=== PATIENT | male | born 1975 | race Caucasian/White ===

== ENCOUNTER 2018-08-12 16:07 | Inpatient (IN) | payer SELFPAY ==
[2018-08-12] MEDS ORDERED: Sodium Chloride 0.9% 1,000 ML IV STA (18:01)
[2018-08-12] MEDS ORDERED: Lidocaine 136 MG in Sodium Chloride 0.9% 100 ML IV STA (18:01)
[2018-08-12 18:17] LABS: BASO # 0.1 K/uL (0.0-0.2); BASO % 0.3 % (0.0-2.0); HEMOGLOBIN 15.6 g/dL (12.0-18.0); LYMPH # 1.1 K/uL (1.0-4.3); LYMPH % 6.2 % (20.0-40.0); MEAN CELL VOLUME 83.2 fL (80.0-94.0); MEAN CORPUSCULAR HEMOGLOBIN 27.4 pg (27.0-31.0); MEAN CORPUSCULAR HGB CONC 32.9 g/dL (33.0-37.0); MEAN PLATELET VOLUME 9.5 fL (7.2-11.7); MONO # 0.9 K/uL (0.0-0.8); MONO % 5.1 % (0.0-10.0); NEUT # 15.8 K/uL (1.8-7.0); NEUT % 88.4 % (50.0-75.0); PLATELET COUNT 284 K/uL (130-400); RBC 5.71 Mil/uL (4.40-5.90); RED CELL DISTRIBUTION WIDTH 14.3 % (11.5-14.5); WHITE BLOOD COUNT 17.8 K/uL (4.8-10.8)
[2018-08-12] MEDS ORDERED: Sodium Chloride 0.9% 1,000 ML ONE ×2 (18:17→20:27)
[2018-08-12 18:25] LABS: SQUAMOUS EPITHIAL 1 /hpf (0-5); URINE BACTERIA RARE (<OCC); URINE BILIRUBIN NEGATIVE (NEGATIVE); URINE BLOOD 1+ (NEGATIVE); URINE CLARITY Hazy (Clear); URINE COLOR Yellow (YELLOW); URINE GLUCOSE (UA) 3+ mg/dL (Normal); URINE LEUKOCYTE ESTERASE NEG Leu/uL (Negative); URINE PROTEIN NEGATIVE (NEGATIVE); URINE UROBILINOGEN NORMAL mg/dL (0.2-1.0)
[2018-08-12 18:31] LABS: ALB/GLOB RATIO 1.5 (1.0-2.1); ALT/SGPT 27 U/L (21-72); AST/SGOT 30 U/L (17-59); BLOOD UREA NITROGEN 22 mg/dL (9-20); GFR NON-AFRICAN AMERICAN > 60; LIPASE 164 U/L (23-300)
--- NOTE | 2018-08-12 18:40 | C.PDOC ---
History Of Present Illness 43 year old male presents to the emergency department with complaints of left flank pain since waking up this morning. Patient reports that he tried to eat breakfast this morning but vomited. Patient states that the pain is 8/10 in s everity. he denies diarrhea, nausea, chest pain, fever, and chills. <Amina Pompa - Last Filed: 08/12/18 19:09> History Per: Patient History/Exam Limitations: no limitations Onset/Duration Of Symptoms: Hrs Current Symptoms Are (Timing): Still Present Pain Scale Rating Of: 8 Location Of Pain/Discomfort: Other (left flank) Quality Of Discomfort: "Pain" Associated Symptoms: Vomiting. denies: Fever, Chills, Nausea, Diarrhea, Chest Pain <Amina Pompa - Last Filed: 08/12/18 19:09> <Pranav Chavez - Last Filed: 08/12/18 19:42> Time Seen by Provider: 08/12/18 16:54 Chief Complaint (Nursing): Abdominal Pain Past Medical History Reviewed: Historical Data, Nursing Documentation, Vital Signs Vital Signs: Last Vital Signs Temp 98.2 F 08/12/18 16:16 Pulse 114 H 08/12/18 16:16 Resp 20 08/12/18 16:16 BP 174/88 H 08/12/18 16:16 Pulse Ox 95 08/12/18 16:16 - Medical History PMH: HTN, Hypercholesterolemia Surgical History: No Surg Hx Family History: States: Unknown Family Hx - Social History Hx Alcohol Use: No Hx Substance Use: No - Immunization History Hx Tetanus Toxoid Vaccination: No Hx Influenza Vaccination: No Hx Pneumococcal Vaccination: No <Amina Pompa - Last Filed: 08/12/18 19:09> Vital Signs: Last Vital Signs Temp 98.2 F 08/12/18 16:16 Pulse 113 H 08/12/18 18:56 Resp 19 08/12/18 18:56 BP 164/103 H 08/12/18 18:56 Pulse Ox 95 08/12/18 19:10 <Pranav Chavez - Last Filed: 08/12/18 19:42> Review Of Systems Except As Marked, All Systems Reviewed And Found Negative. Constitutional: Negative for: Fever, Chills Cardiovascular: Negative for: Chest Pain Gastrointestinal: Positive for: Vomiting, Abdominal Pain. Negative for: Nausea, Diarrhea <Amina Pompa - Last Filed: 08/12/18 19:09> Physical Exam - Physical Exam Appears: Non-toxic, In Acute Distress (uncomfortable) Skin: Normal Color, Warm, Dry Head: Atraumatic, Normacephalic Eye(s): bilateral: Normal Inspection, PERRL, EOMI Nose: Normal Oral Mucosa: Moist Neck: Normal, Supple Chest: Symmetrical, No Tenderness Cardiovascular: Rhythm Regular, No Murmur Respiratory: Normal Breath Sounds, No Rales, No Rhonchi, No Wheezing Gastrointestinal/Abdominal: Soft, No Tenderness, No Guarding, No Rebound Extremity: Normal ROM Neurological/Psych: Oriented x3, Normal Speech, Normal Cognition <Amina Pompa - Last Filed: 08/12/18 19:09> ED Course And Treatment - Laboratory Results Result Diagrams: 08/12/18 18:07 08/12/18 18:07 Lab Results: Total Bilirubin 0.6 mg/dL (0.2-1.3) 08/12/18 18:07 AST 30 U/L (17-59) 08/12/18 18:07 ALT 27 U/L (21-72) 08/12/18 18:07 Alkaline Phosphatase 106 U/L (38-126) 08/12/18 18:07 Total Protein 8.2 g/dL (6.3-8.3) 08/12/18 18:07 Albumin 5.0 g/dL (3.5-5.0) 08/12/18 18:07 Globulin 3.2 gm/dL (2.2-3.9) 08/12/18 18:07 Albumin/Globulin Ratio 1.5 (1.0-2.1) 08/12/18 18:07 Lipase 164 U/L (23-300) 08/12/18 18:07 O2 Sat by Pulse Oximetry: 95 <mAina Pompa - Last Filed: 08/12/18 19:09> - Laboratory Results Result Diagrams: 08/12/18 18:07 08/12/18 18:07 Lab Results: Troponin I < 0.0120 ng/mL (0.00-0.120) 08/12/18 18:07 Total Bilirubin 0.6 mg/dL (0.2-1.3) 08/12/18 18:07 AST 30 U/L (17-59) 08/12/18 18:07 ALT 27 U/L (21-72) 08/12/18 18:07 Alkaline Phosphatase 106 U/L (38-126) 08/12/18 18:07 Total Protein 8.2 g/dL (6.3-8.3) 08/12/18 18:07 Albumin 5.0 g/dL (3.5-5.0) 08/12/18 18:07 Globulin 3.2 gm/dL (2.2-3.9) 08/12/18 18:07 Albumin/Globulin Ratio 1.5 (1.0-2.1) 08/12/18 18:07 Lipase 164 U/L (23-300) 08/12/18 18:07 Urine Color Yellow (YELLOW) 08/12/18 18:07 Urine Clarity Hazy (Clear) 08/12/18 18:07 Urine pH 5.0 (5.0-8.0) 08/12/18 18:07 Ur Specific [place] 1.021 (1.003-1.030) 08/12/18 18:07 Urine Protein Negative mg/dL (NEGATIVE) 08/12/18 18:07 Urine Glucose (UA) 3+ mg/dL (Normal) H 08/12/18 18:07 Urine Ketones Trace mg/dL (NEGATIVE) 08/12/18 18:07 Urine Blood 1+ (NEGATIVE) H 08/12/18 18:07 Urine Nitrate Negative (NEGATIVE) 08/12/18 18:07 Urine Bilirubin Negative (NEGATIVE) 08/12/18 18:07 Urine Urobilinogen Normal mg/dL (0.2-1.0) 08/12/18 18:07 Ur Leukocyte Esterase Neg Monisha/uL (Negative) 08/12/18 18:07 Urine WBC (Auto) < 1 /hpf (0-5) 08/12/18 18:07 Urine RBC (Auto) 1 /hpf (0-3) 08/12/18 18:07 Ur Squamous Epith Cells 1 /hpf (0-5) 08/12/18 18:07 Urine Bacteria Rare (<OCC) 08/12/18 18:07 <Pranav Chavez - Last Filed: 08/12/18 19:42> Medical Decision Making Medical Decision Making: Plan: CT Abdomen and Pelvis EKG Chemistry CBC Lidocaine 136mg IV NaCl IV Fluids Zofran 4mg IVP Urinalysis <Amina Pompa - Last Filed: 08/12/18 19:09> Disposition - Disposition Disposition Time: 19:10 <Amina Pompa - Last Filed: 08/12/18 19:09> Discussed With : Shreyas Brewer Doctor Will See Patient In The: Hospital Counseled Patient/Family Regarding: Diagnosis - Disposition Disposition Time: 19:40 - POA Present On Arrival: None <Pranav Chavez - Last Filed: 08/12/18 19:42> - Disposition Disposition: HOSPITALIZED Condition: STABLE Forms: [employer]aph[employer] ([place]) - Clinical Impression Clinical Impression: Flank pain, Diabetes mellitus, Hydronephrosis, left, Pyelonephritis, Hydroureter, left - PA / OFFICE LEAD / Resident Statement MD/DO has reviewed & agrees with the documentation as recorded. - Scribe Statement The provider has reviewed the documentation as recorded by the Scribe (Jayro Giron) All medical record entries made by the Scribe were at my direction and personally dictated by me. I have reviewed the chart and agree that the record accurately reflects my personal performance of the history, physical exam, medical decision making, and the department course for this patient. I have also personally directed, reviewed, and agree with the discharge instructions and disposition. <Amina Pompa - Last Filed: 08/12/18 19:09> Physician Patient Turnover Patient Signed Over To: Pranav Chavez Handoff Comments: CT abdomen/pelvis, EKG pending <Amina Pompa - Last Filed: 08/12/18 19:09>
[2018-08-12] MEDS ORDERED: Sodium Chloride 0.9% 1,000 ML IV ONE (19:16)
[2018-08-12] MEDS ORDERED: (Novolin R) Insulin Human Regular 100 units/ml vial SC ONE (19:17)
[2018-08-12] MEDS ORDERED: Ciprofloxacin 400mg/200ml D5W 400 MG/200 ML BAG IVPB STA (19:24)
[2018-08-12] MEDS ORDERED: (Novolin R) Insulin Human Regular 100 units/ml vial ONE (20:27)
[2018-08-12] MEDS ORDERED: Ciprofloxacin 400mg/200ml D5W 400 MG/200 ML BAG IVPB ONE (20:27)
[2018-08-12 20:57] LABS: LYMPHOCYTE 8 % (20-40); MONOCYTE 3 % (0-10); NEUTROPHIL 89 % (50-75); PLATELET ESTIMATE NORMAL (NORMAL); TOTAL CELLS COUNTED 100
[2018-08-13] MEDS: Sodium Chloride 0.45% 1,000 ML IV SCH ×3 (00:46→17:15)
--- NOTE | 2018-08-13 00:48 | CP.PCM.HP ---
<TaiwomaryJorge - Last Filed: 08/13/18 00:58> History of Present Illness - History of Present Illness History of Present Illness: PGY-1 History and Physical for Dr. Brewer Patient is a 43 year old male with PMHx HTN, HLD, DM who presents with new-onse, persistent L-sided abdominal pain that began 5 pm yesterday. Patient denies n/c/d/c. Patient denies dysuria, pyuria, or hematuria, but does states some occasional "itching" with urination. Patient denies any fevers or chills. Pt does state pain has improved slightly as of today, but still persists. Patient is diabetic and notes that his sugars tend to run high, in the 200s, does state he has a poor diet and "eats a lot". PMHx: HTN, HLD, DM Allergeries: NKA Surgical hx: Denies Family hx: No known Social hx: Nonsmoker, denies drug or alcohol use. Works in [employer]. Meds: Norvasc 5 mg PO daily, Glimeperide 2mg PO BID, Atorvastatin 40 mg PO HS Present on Admission - Present on Admission Any Indicators Present on Admission: No Review of Systems - Constitutional Constitutional: absent: Chills, Fatigue, Fever - EENT Eyes: absent: Blurred Vision, Photophobia Nose/Mouth/Throat: absent: Nasal Congestion, Nasal Discharge - Cardiovascular Cardiovascular: absent: Chest Pain, Dyspnea - Respiratory Respiratory: absent: Cough, Dyspnea - Gastrointestinal Gastrointestinal: Abdominal Pain (Left-sided abd pain). absent: Constipation, Diarrhea, Nausea, Vomiting - Genitourinary Genitourinary: absent: Dysuria, Pyuria, Urinary Frequency, Urinary Hesitance - Musculoskeletal Musculoskeletal: absent: Numbness, Tingling - Neurological Neurological: absent: Numbness, Focal Weakness - Endocrine Endocrine: Polydipsia, Polyuria. absent: Fatigue Past Patient History - Infectious Disease Hx of Infectious Diseases: None - Past Social History Smoking Status: Never Smoked - CARDIAC Hx Hypercholesterolemia: Yes Hx Hypertension: Yes - ENDOCRINE/METABOLIC Hx Endocrine Disorders: Yes Hx Diabetes Mellitus Type 2: Yes - PSYCHIATRIC Hx Substance Use: No - SURGICAL HISTORY Hx Surgeries: No - ANESTHESIA Hx Anesthesia: No Meds Allergies/Adverse Reactions: Allergies Allergy/AdvReac Type Severity Reaction Status Date / Time No Known Allergies Allergy Verified 07/06/16 18:47 Physical Exam - Constitutional Appears: Non-toxic, No Acute Distress - Head Exam Head Exam: ATRAUMATIC, NORMOCEPHALIC - Eye Exam Eye Exam: EOMI, Normal appearance - ENT Exam ENT Exam: Mucous Membranes Moist - Respiratory Exam Respiratory Exam: Clear to Auscultation Bilateral, NORMAL BREATHING PATTERN. absent: Rhonchi, Wheezes - Cardiovascular Exam Cardiovascular Exam: REGULAR RHYTHM, +S1, +S2 - GI/Abdominal Exam GI & Abdominal Exam: Normal Bowel Sounds, Soft. absent: Tenderness - Extremities Exam Extremities exam: Positive for: normal inspection. Negative for: pedal edema, tenderness - Neurological Exam Neurological exam: Alert, CN II-XII Intact, Oriented x3 - Psychiatric Exam Psychiatric exam: Normal Affect, Normal Mood - Skin Skin Exam: Dry, Intact Results - Vital Signs Recent Vital Signs: Last Vital Signs Temp 99.6 F 08/13/18 00:39 Pulse 116 H 08/13/18 00:39 Resp 16 08/13/18 00:39 BP 123/84 08/13/18 00:39 Pulse Ox 97 08/13/18 00:39 - Labs Result Diagrams: 08/12/18 18:07 08/12/18 18:07 Labs: Laboratory Results - last 24 hr 08/12/18 08/12/18 08/12/18 18:07 18:07 18:07 WBC 17.8 H D RBC 5.71 Hgb 15.6 Hct 47.5 MCV 83.2 MCH 27.4 MCHC 32.9 L RDW 14.3 Plt Count 284 MPV 9.5 Neut % (Auto) 88.4 H Lymph % (Auto) 6.2 L [place] % (Auto) 5.1 Eos % (Auto) 0.0 Baso % (Auto) 0.3 Neut # (Auto) 15.8 H Lymph # (Auto) 1.1 [place] # (Auto) 0.9 H Eos # (Auto) 0.0 Baso # (Auto) 0.1 Neutrophils % (Manual) 89 H Lymphocytes % (Manual) 8 L Monocytes % (Manual) 3 Platelet Estimate Normal Sodium 135 Potassium 3.7 Chloride 98 Carbon Dioxide 22 Anion Gap 18 BUN 22 H Creatinine 1.0 Est GFR ( Amer) > 60 Est GFR (Non-Af Amer) > 60 Random Glucose 286 H D Calcium 10.0 Total Bilirubin 0.6 AST 30 ALT 27 Alkaline Phosphatase 106 Troponin I < 0.0120 Total Protein 8.2 Albumin 5.0 Globulin 3.2 Albumin/Globulin Ratio 1.5 Lipase 164 Urine Color Yellow Urine Clarity Hazy Urine pH 5.0 Ur Specific [place] 1.021 Urine Protein Negative Urine Glucose (UA) 3+ H Urine Ketones Trace Urine Blood 1+ H Urine Nitrate Negative Urine Bilirubin Negative Urine Urobilinogen Normal Ur Leukocyte Esterase Neg Urine WBC (Auto) < 1 Urine RBC (Auto) 1 Ur Squamous Epith Cells 1 Urine Bacteria Rare Assessment & Plan - Assessment and Plan (Free Text) Assessment: Abdominal pain 07/21 Nephrolithiasis -CT abd/pelvis 08/14- apparent calculus at vesiculoureteral junction (d/w Dr. Brewer, official read pending) - f/u official read -.45 NS @ 150 cc/hr -Rocephin 1 gm IV daily -Procalcitonin - f/u -Strain urine for calculi -Urology consulted - f/u recs -F/u repeat abd US -NPO after midnight in case of surgical intervention DM, uncontrolled -A1C - f/u -DM meds held while NPO HTN -Home Norvasc 5mg PO daily Hypercholesterolemia -Crestor 20 mg PO HS PPx: DVt - Heparin 5000 U SC Q8 Assessment and plan d/w Dr. Osman Hood, PGY-1 <Shreyas Brewer P - Last Filed: 08/13/18 07:26> Results - Vital Signs Recent Vital Signs: Last Vital Signs Temp 98.2 F 08/13/18 02:00 Pulse 112 H 08/13/18 02:00 Resp 20 08/13/18 02:00 BP 157/97 H 08/13/18 02:00 Pulse Ox 95 08/13/18 02:00 - Labs Result Diagrams: 08/12/18 18:07 08/12/18 18:07 Labs: Laboratory Results - last 24 hr 08/12/18 08/12/18 08/12/18 18:07 18:07 18:07 WBC 17.8 H D RBC 5.71 Hgb 15.6 Hct 47.5 MCV 83.2 MCH 27.4 MCHC 32.9 L RDW 14.3 Plt Count 284 MPV 9.5 Neut % (Auto) 88.4 H Lymph % (Auto) 6.2 L [place] % (Auto) 5.1 Eos % (Auto) 0.0 Baso % (Auto) 0.3 Neut # (Auto) 15.8 H Lymph # (Auto) 1.1 [place] # (Auto) 0.9 H Eos # (Auto) 0.0 Baso # (Auto) 0.1 Neutrophils % (Manual) 89 H Lymphocytes % (Manual) 8 L Monocytes % (Manual) 3 Platelet Estimate Normal Sodium 135 Potassium 3.7 Chloride 98 Carbon Dioxide 22 Anion Gap 18 BUN 22 H Creatinine 1.0 Est GFR ( Amer) > 60 Est GFR (Non-Af Amer) > 60 POC Glucose (mg/dL) Random Glucose 286 H D Calcium 10.0 Total Bilirubin 0.6 AST 30 ALT 27 Alkaline Phosphatase 106 Troponin I < 0.0120 Total Protein 8.2 Albumin 5.0 Globulin 3.2 Albumin/Globulin Ratio 1.5 Lipase 164 Urine Color Yellow Urine Clarity Hazy Urine pH 5.0 Ur Specific [place] 1.021 Urine Protein Negative Urine Glucose (UA) 3+ H Urine Ketones Trace Urine Blood 1+ H Urine Nitrate Negative Urine Bilirubin Negative Urine Urobilinogen Normal Ur Leukocyte Esterase Neg Urine WBC (Auto) < 1 Urine RBC (Auto) 1 Ur Squamous Epith Cells 1 Urine Bacteria Rare 08/13/18 06:49 WBC RBC Hgb Hct MCV MCH MCHC RDW Plt Count MPV Neut % (Auto) Lymph % (Auto) [place] % (Auto) Eos % (Auto) Baso % (Auto) Neut # (Auto) Lymph # (Auto) [place] # (Auto) Eos # (Auto) Baso # (Auto) Neutrophils % (Manual) Lymphocytes % (Manual) Monocytes % (Manual) Platelet Estimate Sodium Potassium Chloride Carbon Dioxide Anion Gap BUN Creatinine Est GFR ( Amer) Est GFR (Non-Af Amer) POC Glucose (mg/dL) 215 H Random Glucose Calcium Total Bilirubin AST ALT Alkaline Phosphatase Troponin I Total Protein Albumin Globulin Albumin/Globulin Ratio Lipase Urine Color Urine Clarity Urine pH Ur Specific [place] Urine Protein Urine Glucose (UA) Urine Ketones Urine Blood Urine Nitrate Urine Bilirubin Urine Urobilinogen Ur Leukocyte Esterase Urine WBC (Auto) Urine RBC (Auto) Ur Squamous Epith Cells Urine Bacteria Attending/Attestation - Attestation I have personally seen and examined this patient.: Yes I have fully participated in the care of the patient.: Yes I have reviewed all pertinent clinical information: Yes Notes (Text): 08/13/18 07:23 Distal UV junction obstructing calculus, with tachycardia, leucocytosis, likely at verge of passing DM H/o HTN Plan IVF Flomax Strain urine urology consult IV abx NPO overnight if need the calculus to be removed or stent insertion if gets infected. See orders for detail.
[2018-08-13 02:48] VITALS: RESP 20
[2018-08-13] MEDS ORDERED: Glucagon Recombinant 1 mg Inj IM PRN ×2 (07:27→07:36)
[2018-08-13] MEDS ORDERED: Dextrose 50% SYRINGE Inj (50 ml) IVP PRN (07:27)
[2018-08-13] MEDS ORDERED: Dextrose 50% SYRINGE Inj (50 ml) IV PRN (07:36)
--- NOTE | 2018-08-13 07:39 | CP.PCM.PN ---
<Manny Perez - Last Filed: 08/13/18 19:05> Subjective - Date & Time of Evaluation Date of Evaluation: 08/13/18 Time of Evaluation: 07:39 - Subjective Subjective: Progress Note for Hospitalist service Patient seen and examined at bedside. He states that his left lower abdominal pain has improved from before, denies nausea, vomiting, constipation, diarrhea. Mother at bedside is concerned about the risk of surgery given his history of diabetes and hypertension. He denies fevers, chills, headache, dizziness, chest pain, shortness of breath, palpitations, dysuria, leg pain or swelling. Objective - Vital Signs/Intake and Output Vital Signs (last 24 hours): Temp Pulse Resp BP Pulse Ox 97.4 F L 104 H 20 154/91 H 94 L 08/13/18 07:30 08/13/18 07:30 08/13/18 07:30 08/13/18 07:30 08/13/18 07:30 - Medications Medications: Current Medications Amlodipine Besylate (Norvasc) 5 mg PO DAILY [facility] Dextrose (Dextrose 50% Inj) 0 ml IVP .STAT PRN; Protocol PRN Reason: Hypoglycemia Protocol Dextrose (Glutose 15) 0 gm PO .ONCE PRN; Protocol PRN Reason: Hypoglycemia Protocol Dextrose (Dextrose 50% Inj) 0 ml IV STAT PRN; Protocol PRN Reason: Hypoglycemia Protocol Dextrose (Glutose 15) 0 gm PO ONCE PRN; Protocol PRN Reason: Hypoglycemia Protocol Glucagon (Glucagen Diagnostic Kit) 0 mg IM .STAT PRN; Protocol PRN Reason: Hypoglycemia Protocol Glucagon (Glucagen Diagnostic Kit) 0 mg IM STAT PRN; Protocol PRN Reason: Hypoglycemia Protocol Hydrochlorothiazide (Hydrodiuril) 25 mg PO DAILY [facility] Sodium Chloride (Sodium Chloride 0.45%) 1,000 mls @ 150 mls/hr IV .Q6H40M [facility] Last Admin: 08/13/18 00:46 Dose: 150 mls/hr Ceftriaxone Sodium 1 gm/ (Sodium Chloride) 100 mls @ 100 mls/hr IVPB DAILY [facility]; Protocol Dextrose (Dextrose 5% In Water 1000 Ml) 1,000 mls @ 0 mls/hr IV .Q0M PRN; Protocol PRN Reason: Hypoglycemia Protocol Dextrose (Dextrose 5% In Water 1000 Ml) 1,000 mls @ 0 mls/hr IV .Q0M PRN; Protocol PRN Reason: Hypoglycemia Protocol Lisinopril (Zestril) 20 mg PO DAILY [facility] Rosuvastatin Calcium (Crestor) 20 mg PO HS [facility] Tamsulosin HCl (Flomax) 0.4 mg PO DAILY [facility] - Labs Labs: 08/12/18 18:07 08/12/18 18:07 - Constitutional Appears: Well, Non-toxic, No Acute Distress - Head Exam Head Exam: ATRAUMATIC, NORMOCEPHALIC - Eye Exam Eye Exam: EOMI, PERRL - ENT Exam ENT Exam: Mucous Membranes Moist - Neck Exam Neck Exam: Full ROM. absent: Tenderness - Respiratory Exam Respiratory Exam: Clear to Ausculation Bilateral, NORMAL BREATHING PATTERN. absent: Rales, Rhonchi, Wheezes, Respiratory Distress, Stridor - Cardiovascular Exam Cardiovascular Exam: REGULAR RHYTHM, +S1, +S2. absent: Gallop, Rubs, Murmur - GI/Abdominal Exam GI & Abdominal Exam: Soft, Tenderness (Minimal left lower abdominal tenderness), Normal Bowel Sounds. absent: Distended, Firm, Guarding, Rigid, Organomegaly - Extremities Exam Extremities Exam: Normal Capillary Refill. absent: Calf Tenderness, Pedal Edema - Back Exam Back Exam: absent: CVA tenderness (L), CVA tenderness (R) - Neurological Exam Neurological Exam: Alert, Awake, Oriented x3 - Psychiatric Exam Psychiatric exam: Normal Affect, Normal Mood - Skin Skin Exam: Dry, Intact, Warm Assessment and Plan - Assessment and Plan (Free Text) Assessment: 43 year old male with history of diabetes and hypertension who present for nephrolithiasis. Plan: Nephrolithiasis, with left hydroureteronephrosis CT abdomen/pelvis: 9 mm calculus at left bladder base. This may be obstructing or may have been recently passed. Left hydroureteronephrosis. Mild left perinephric fluid. Left periureteric stranding. Nonobstructing 2 mm mid right renal calculus. 3 cm hyperdense right parapelvic mass. Possible hyperdense cyst. Correlate with renal ultrasound examination. Left inguinal hernia cont aining mesenteric fat but no bowel. Abdomen flat upright: no intra-abdominal calcification notified. CXR: negative EKG: Sinus tachycardia, no ST-T changes. Afebrile, white count 13.1 downtrending from 17.8 Procalcitonin 0.08 UA: 3+ glucose, 1+ blood Urine culture: prelim no growth Blood culture pending Urologist Dr. Hagan consulted Patient reportedly passed kidney stone prior to OR today, cleared for discharged by Dr. Hagan. Calculi sent for analysis, should follow up in office within 1 month for stone analysis. 06/20 NS @ 75cc/hr IV Follow up Renal US tomorrow AM Rocephin 1g IV Zofran 4mg Q6 PRN Flomax 0.4mg PO History of DM A1c follow up Takes Amaryl 2mg PO BID, Metformin unknown dose UA reveals glucose History of hypertension Norvasc 5mg PO HCTZ 25mg PO Lisinopril 20mg PO Home meds: Norvasc 5mg PO, Prinzide 20/25 (Lisinopril/HCTZ) PO Continue to monitor History of Hyperlipidemia Crestor 20mg PO HS Home med: Lipitor 40mg PO Prophylaxis Pepcid Regular diet SCDs Case discussed with Dr. Modesto Perez, PGY1 <Veronica Salvador V - Last Filed: 08/13/18 20:32> Objective - Vital Signs/Intake and Output Vital Signs (last 24 hours): Temp Pulse Resp BP Pulse Ox 98.0 F 110 H 20 136/88 96 08/13/18 15:00 08/13/18 15:00 08/13/18 15:00 08/13/18 15:00 08/13/18 15:00 Intake and Output: 08/13/18 08/14/18 18:59 06:59 Intake Total 900 Output Total 700 Balance 200 - Medications Medications: Current Medications Amlodipine Besylate (Norvasc) 5 mg PO DAILY [facility] Last Admin: 08/13/18 10:24 Dose: 5 mg Dextrose (Dextrose 50% Inj) 0 ml IVP .STAT PRN; Protocol PRN Reason: Hypoglycemia Protocol Dextrose (Glutose 15) 0 gm PO .ONCE PRN; Protocol PRN Reason: Hypoglycemia Protocol Dextrose (Dextrose 50% Inj) 0 ml IV STAT PRN; Protocol PRN Reason: Hypoglycemia Protocol Dextrose (Glutose 15) 0 gm PO ONCE PRN; Protocol PRN Reason: Hypoglycemia Protocol Famotidine (Pepcid) 20 mg PO DAILY [facility] Glucagon (Glucagen Diagnostic Kit) 0 mg IM .STAT PRN; Protocol PRN Reason: Hypoglycemia Protocol Glucagon (Glucagen Diagnostic Kit) 0 mg IM STAT PRN; Protocol PRN Reason: Hypoglycemia Protocol Hydrochlorothiazide (Hydrodiuril) 25 mg PO DAILY [facility] Last Admin: 08/13/18 10:24 Dose: 25 mg Ceftriaxone Sodium 1 gm/ (Sodium Chloride) 100 mls @ 100 mls/hr IVPB DAILY [facility]; Protocol Last Admin: 08/13/18 10:24 Dose: 100 mls/hr Dextrose (Dextrose 5% In Water 1000 Ml) 1,000 mls @ 0 mls/hr IV .Q0M PRN; Protocol PRN Reason: Hypoglycemia Protocol Dextrose (Dextrose 5% In Water 1000 Ml) 1,000 mls @ 0 mls/hr IV .Q0M PRN; Protocol PRN Reason: Hypoglycemia Protocol Sodium Chloride (Sodium Chloride 0.45%) 1,000 mls @ 75 mls/hr IV .[id number] [facility] Last Admin: 08/13/18 17:15 Dose: 75 mls/hr Lisinopril (Zestril) 20 mg PO DAILY [facility] Last Admin: 08/13/18 11:00 Dose: Not Given Ondansetron HCl (Zofran Inj) 4 mg IVP Q6H PRN PRN Reason: Nausea/Vomiting Rosuvastatin Calcium (Crestor) 20 mg PO HS [facility] Tamsulosin HCl (Flomax) 0.4 mg PO DAILY [facility] Last Admin: 08/13/18 10:24 Dose: 0.4 mg - Labs Labs: 08/13/18 10:07 08/13/18 10:07 PT 12.5 SECONDS (9.7-12.2) H 08/13/18 10:07 INR 1.1 08/13/18 10:07 Attending/Attestation - Attestation I have personally seen and examined this patient.: Yes I have fully participated in the care of the patient.: Yes I have reviewed all pertinent clinical information, including history, physical exam and plan: Yes Notes (Text): This is a 43-year-old male with past medical history including diabetes, hypertension, and lipid disorder came into the emergency room with associated abdominal pain found on CAT scan to have nephrolithiasis and associated left hydroureteronephrosis. Patient seen this morning with his mother at bedside. Patient is for n.p.o. for possible urologic intervention. Patient does not have a prior history of kidney stones. I did speak with Dr. Waterman later this afternoon who noted that prior to scheduled OR patient actually passed the stone and they were able to collected and sent it out from his standpoint patient is stable to go home. We will await urine culture and blood culture since they were collected on admission. Patient did come in with increased white count at 17.8 which has been improving to 13.1 as well as associated sodium dropped from 135-130 which I suspect is due to SIADH secondary to pain from kidney stone. Plan for possible discharge tomorrow. 1. Left hydroureteronephrosis Nephrolithiasis Assessment/plan * Urology on board help appreciated * Stone was collected prior to possible OR which was subsequently canceled discussed with urology stable from the standpoint for discharge * Urine culture preliminary is negative * White count did improve while on IV antibiotic from 17.8-13.8 * Pro-calcitonin is normal * CT scan as of August 13, 2018 and noted for 9 mm calculus at the left lateral bladder base this may be obstructing or may have recently passed. L eft hydroureteronephrosis. Mild left perinephric fluid. Left periureteric stranding. Nonobstructing 2 mm mid right renal calculus. 3 cm hyperdense parapelvic pelvic mass. Possible hyperdense cyst. * Flomax 0.4mg PO daily 2. Renal cyst Assessment/plan * We will characterize with renal ultrasound * Patient will need follow-up in terms of monitoring size renal cyst is noted in the CAT scan 3. History of diabetes * Patient was initially n.p.o. prior to potential urologic procedure we have changed to diet later this afternoon * Hypoglycemic protocol * Accu-Cheks to change from every 6 to every 8 CHS in light of cancer procedure given the stone has passed 4. History of hypertension Assessment/plan * Resume patient's home dose of Norvasc 5 mg 1 tablet once a day, HCTZ 25mg PO daily, Lisinopril 20mg PO daily 5. Lipid disorder Assessment/plan * Resume statin 6. Leukocytosis Assessment/plan * Procalcitonin: low * f/u blood cultures * f/u urine culture * patient is on IV abx 7. PPx: Assessment/plan * held prior to OR; OR was cancelled since stone passed; resumed DVT ppx * Florastor 250mg PO bid * NS 75cc/hr
--- NOTE | 2018-08-13 08:47 | CT ---
Date of service: 08/12/2018 PROCEDURE: CT Abdomen and Pelvis without intravenous contrast HISTORY: left flank pain COMPARISON: None. TECHNIQUE: Without contrast.. Contrast dose: 0 Radiation dose: Total exam DLP = 651.09 mGy-cm. This CT exam was performed using one or more of the following dose reduction techniques: Automated exposure control, adjustment of the mA and/or kV according to patient size, and/or use of iterative reconstruction technique. FINDINGS: LOWER THORAX: Unremarkable. LIVER: Mild hepatomegaly. The liver measures approximately 20 cm craniocaudal. Smooth contour. No mass. No biliary dilatation. GALLBLADDER AND BILE DUCTS: Unremarkable. PANCREAS: Unremarkable. No gross lesion or ductal dilatation. SPLEEN: Unremarkable. ADRENALS: Unremarkable. No mass. KIDNEYS AND URETERS: 3 cm rounded parapelvic mass in the right kidney, hyperdense. It measures 38 Hounsfield units. Possible hyperdense parapelvic cyst. Rule out solid mass. Recommend further evaluation with renal ultrasound examination. Left hydroureteronephrosis. Mild left perinephric fluid. Left periureteric stranding. There is a 9 mm curvilinear calculus at the left bladder base. It is possible that this is within the ureteral orifice protruding into the bladder lumen or may be free within the bladder lumen at this time. There is a 2 mm nonobstructing mid right renal calculus. There is no left renal calculus. VASCULATURE: Unremarkable. No aortic aneurysm. No aortic atherosclerotic calcification or mural plaque present. BOWEL: Unremarkable. No obstruction. No gross mural thickening. APPENDIX: Unremarkable. Normal appendix. PERITONEUM: Left inguinal hernia containing only mesenteric fat. There is a rounded calcifications seen at the distal aspect of the herniated mesenteric fat, of uncertain significance. Possible old mesenteric infarct or calcified lymph node. No herniated bowel. No ascites or pneumoperitoneum. LYMPH NODES: Unremarkable. No enlarged lymph nodes. BLADDER: Unremarkable. REPRODUCTIVE: Normal prostate BONES: No acute fracture. OTHER FINDINGS: None. IMPRESSION: 9 mm calculus at left bladder base. This may be obstructing or may have been recently passed. Left hydroureteronephrosis. Mild left perinephric fluid. Left periureteric stranding. Nonobstructing 2 mm mid right renal calculus. 3 cm hyperdense right parapelvic mass. Possible hyperdense cyst. Correlate with renal ultrasound examination. Left inguinal hernia containing mesenteric fat but no bowel. The preliminary findings for this examination were reported by [facility] at 7:11 p.m. on 08/12/2018. There is discordance of this report with the preliminary findings. Left inguinal hernia was not described in the preliminary report of this examination.
--- NOTE | 2018-08-13 10:14 | RAD ---
Date of service: 08/13/2018 HISTORY: assess stone movment COMPARISON: None available. FINDINGS: BOWEL: Normal abdominal bowel gas pattern. Gas seen throughout large and small bowel loops. Mild retained feces. No abnormal intra-abdominal calcifications are appreciated. No hepatic or splenic enlargement. The calculus in the region of the left ureterovesical junction on CT examination is not appreciated on the current examination. BONES: Normal. OTHER FINDINGS: None. IMPRESSION: No abnormal intra-abdominal calcification identified.
[2018-08-13 10:16] LABS: BASO % 0.2 % (0.0-2.0); EOS % 0.1 % (0.0-4.0); HEMOGLOBIN 14.8 g/dL (12.0-18.0); LYMPH # 1.1 K/uL (1.0-4.3); LYMPH % 8.3 % (20.0-40.0); MEAN CELL VOLUME 81.6 fL (80.0-94.0); MEAN CORPUSCULAR HEMOGLOBIN 28.1 pg (27.0-31.0); MEAN CORPUSCULAR HGB CONC 34.5 g/dL (33.0-37.0); MEAN PLATELET VOLUME 8.5 fL (7.2-11.7); MONO # 1.2 K/uL (0.0-0.8); MONO % 9.3 % (0.0-10.0); NEUT # 10.7 K/uL (1.8-7.0); NEUT % 82.1 % (50.0-75.0); NRBC % 0.2 % (0.0-2.0); PLATELET COUNT 223 K/uL (130-400); RBC 5.27 Mil/uL (4.40-5.90); RED CELL DISTRIBUTION WIDTH 13.9 % (11.5-14.5); WHITE BLOOD COUNT 13.1 K/uL (4.8-10.8)
[2018-08-13 10:18] LABS: INR 1.1; PROTHROMBIN TIME 12.5 SECONDS (9.7-12.2)
[2018-08-13 10:36] LABS: ALB/GLOB RATIO 1.6 (1.0-2.1); ALBUMIN 4.3 g/dL (3.5-5.0); ALT/SGPT 22 U/L (21-72); AST/SGOT 29 U/L (17-59); BLOOD UREA NITROGEN 17 mg/dL (9-20); CALCIUM 9.3 mg/dl (8.6-10.4); GFR NON-AFRICAN AMERICAN > 60
[2018-08-13 11:12] LABS: LYMPHOCYTE 10 % (20-40); MONOCYTE 10 % (0-10); NEUTROPHIL 80 % (50-75); PLATELET ESTIMATE NORMAL (NORMAL); TOTAL CELLS COUNTED 100
--- NOTE | 2018-08-13 12:19 | RAD ---
Date of service: 08/13/2018 HISTORY: preadmission COMPARISON: 07/06/2016. FINDINGS: LUNGS: The lungs are well inflated and clear. There is a stable small calcified granuloma in the left lower lobe. PLEURA: No pleural effusions or pneumothorax. CARDIOVASCULAR: The heart is normal in size. No aortic atherosclerotic calcifications present. OSSEOUS STRUCTURES: Within normal limits for the patient's age. VISUALIZED UPPER ABDOMEN: Normal. OTHER FINDINGS: None. IMPRESSION: No active pulmonary disease.
--- NOTE | 2018-08-13 14:38 | CP.PCM.PN ---
Subjective - Date & Time of Evaluation Date of Evaluation: 08/13/18 Time of Evaluation: 14:38 - Subjective Subjective: Patient passed calculi in holding area prior to entering OR. It was recovered from urinal and sent for anylisis. Pt urologically cleared for discharge. He should follow up in our office within 1 month to review stone anylisis,and plan any future therapy. Danya. Objective - Vital Signs/Intake and Output Vital Signs (last 24 hours): Temp Pulse Resp BP Pulse Ox 97.4 F L 104 H 20 154/91 H 94 L 08/13/18 07:30 08/13/18 07:30 08/13/18 07:30 08/13/18 07:30 08/13/18 07:30 - Medications Medications: Current Medications Amlodipine Besylate (Norvasc) 5 mg PO DAILY [facility] Last Admin: 08/13/18 10:24 Dose: 5 mg Dextrose (Dextrose 50% Inj) 0 ml IVP .STAT PRN; Protocol PRN Reason: Hypoglycemia Protocol Dextrose (Glutose 15) 0 gm PO .ONCE PRN; Protocol PRN Reason: Hypoglycemia Protocol Dextrose (Dextrose 50% Inj) 0 ml IV STAT PRN; Protocol PRN Reason: Hypoglycemia Protocol Dextrose (Glutose 15) 0 gm PO ONCE PRN; Protocol PRN Reason: Hypoglycemia Protocol Glucagon (Glucagen Diagnostic Kit) 0 mg IM .STAT PRN; Protocol PRN Reason: Hypoglycemia Protocol Glucagon (Glucagen Diagnostic Kit) 0 mg IM STAT PRN; Protocol PRN Reason: Hypoglycemia Protocol Hydrochlorothiazide (Hydrodiuril) 25 mg PO DAILY [facility] Last Admin: 08/13/18 10:24 Dose: 25 mg Sodium Chloride (Sodium Chloride 0.45%) 1,000 mls @ 150 mls/hr IV .Q6H40M [facility] Last Admin: 08/13/18 07:46 Dose: 150 mls/hr Ceftriaxone Sodium 1 gm/ (Sodium Chloride) 100 mls @ 100 mls/hr IVPB DAILY [facility]; Protocol Last Admin: 08/13/18 10:24 Dose: 100 mls/hr Dextrose (Dextrose 5% In Water 1000 Ml) 1,000 mls @ 0 mls/hr IV .Q0M PRN; Protocol PRN Reason: Hypoglycemia Protocol Dextrose (Dextrose 5% In Water 1000 Ml) 1,000 mls @ 0 mls/hr IV .Q0M PRN; Protocol PRN Reason: Hypoglycemia Protocol Lisinopril (Zestril) 20 mg PO DAILY [facility] Last Admin: 08/13/18 11:00 Dose: Not Given Ondansetron HCl (Zofran Inj) 4 mg IVP Q6H PRN PRN Reason: Nausea/Vomiting Rosuvastatin Calcium (Crestor) 20 mg PO HS [facility] Tamsulosin HCl (Flomax) 0.4 mg PO DAILY [facility] Last Admin: 08/13/18 10:24 Dose: 0.4 mg - Labs Labs: 08/13/18 10:07 08/13/18 10:07 PT 12.5 SECONDS (9.7-12.2) H 08/13/18 10:07 INR 1.1 08/13/18 10:07
[2018-08-13] MEDS: (Novolog) Insulin Aspart, Recombinant 100 u/ml 10 ml vial SC SCH (21:23)
[2018-08-13] MEDS: Saccharomyces Boulardi 250 mg Cap PO SCH (21:29)
[2018-08-14 00:11] VITALS: O2SAT 95
--- NOTE | 2018-08-14 01:55 | CON ---
DATE: 08/13/2018 CHIEF COMPLAINT: Left flank pain. HISTORY OF PRESENT ILLNESS: The patient was examined in the holding area for the OR. He presented to the hospital yesterday evening with severe left flank pain and was diagnosed with elongated calculus at the ureterovesical junction. The calculus was 9 mm x 5 mm. The patient continued to have colic, and the decision was made to proceed with surgery. He is here in the holding area and while in the holding area, he got a severe pain and needing to urinate and passed the calculi. The calculi was recovered and appeared to be the shape and size described on the CAT scan. He is now pain free. REVIEW OF SYSTEMS: Respiratory, GI, musculoskeletal, vascular, integument, orthopedic, and neurological systems are negative in their history. PHYSICAL EXAMINATION: VITAL SIGNS: Within normal limits. HEAD, EARS, EYES, NOSE AND THROAT: Within normal limits. NECK: Supple. There are no bruits, nodes or masses. CHEST: Clear bilaterally. There are no rales or rhonchi. ABDOMEN: No CVA tenderness. There is no anterior abdominal tenderness or guarding. RECTAL: The patient refuses rectal examination. GENITALIA: Appeared normal. LABORATORY DATA: I reviewed and looked at the passed calculus. It is consistent with the calculus noted at the UVJ on the CAT scan. IMPRESSION AND PLAN: Based on above findings, my impression is recently passed ureteral calculus to suggest since the morning KUB does not show the stone seen on the CAT scan that was not obstructing in the kidney. There is no further therapy necessary at this time. We advised the patient to follow up in our office to review stone analysis and a call was put out to Dr. Salvador to advise her findings. I did speak with the nurse on the floor, advising her with the findings. The decision has been made not to proceed with surgery. José Manuel Hagan MD
[2018-08-14] MEDS: Sodium Chloride 0.45% 1,000 ML IV SCH (06:03)
[2018-08-14 07:40] VITALS: TEMP 98
[2018-08-14 07:42] LABS: BASO # 0.1 K/uL (0.0-0.2); BASO % 0.6 % (0.0-2.0); EOS # 0.1 K/uL (0.0-0.7); LYMPH # 1.5 K/uL (1.0-4.3); LYMPH % 17.7 % (20.0-40.0); MEAN CELL VOLUME 82.8 fL (80.0-94.0); MEAN CORPUSCULAR HEMOGLOBIN 28.8 pg (27.0-31.0); MEAN CORPUSCULAR HGB CONC 34.8 g/dL (33.0-37.0); MEAN PLATELET VOLUME 8.5 fL (7.2-11.7); MONO # 1.1 K/uL (0.0-0.8); MONO % 12.1 % (0.0-10.0); NEUT % 68.6 % (50.0-75.0); NRBC % 0.1 % (0.0-2.0); RBC 5.19 Mil/uL (4.40-5.90); RED CELL DISTRIBUTION WIDTH 14.1 % (11.5-14.5); WHITE BLOOD COUNT 8.7 K/uL (4.8-10.8)
[2018-08-14 08:31] LABS: ALB/GLOB RATIO 1.5 (1.0-2.1); ALBUMIN 4.3 g/dL (3.5-5.0); ALT/SGPT 22 U/L (21-72); AST/SGOT 19 U/L (17-59); BLOOD UREA NITROGEN 20 mg/dL (9-20); CALCIUM 9.4 mg/dl (8.6-10.4); GFR NON-AFRICAN AMERICAN > 60
--- NOTE | 2018-08-14 08:31 | CP.PCM.DIS ---
Provider - Provider Date of Admission: 08/12/18 19:43 Attending physician: Veronica Salvador DO Consults: 08/12/18 19:46 Urology Consult Stat Comment: Consulting Provider: José Manuel Hagan Jr. Consulting Physician: José Manuel Hagan Jr. Reason for Consult: left hydroueter and hydronephrosis Hospital Course - Lab Results Lab Results: Micro Results 08/12/18 19:30 Blood Blood Culture - Preliminary NO GROWTH AFTER 24 HOURS 08/12/18 19:45 Blood Blood Culture - Preliminary NO GROWTH AFTER 24 HOURS 08/12/18 20:54 Urine,Clean Catch Urine Culture - Preliminary No growth. Most Recent Lab Values WBC 8.7 K/uL (4.8-10.8) 08/14/18 07:16 RBC 5.19 Mil/uL (4.40-5.90) 08/14/18 07:16 Hgb 15.0 g/dL (12.0-18.0) 08/14/18 07:16 Hct 43.0 % (35.0-51.0) 08/14/18 07:16 MCV 82.8 fL (80.0-94.0) 08/14/18 07:16 MCH 28.8 pg (27.0-31.0) 08/14/18 07:16 MCHC 34.8 g/dL (33.0-37.0) 08/14/18 07:16 RDW 14.1 % (11.5-14.5) 08/14/18 07:16 Plt Count 235 K/uL (130-400) 08/14/18 07:16 MPV 8.5 fL (7.2-11.7) 08/14/18 07:16 Neut % (Auto) 68.6 % (50.0-75.0) 08/14/18 07:16 Lymph % (Auto) 17.7 % (20.0-40.0) L 08/14/18 07:16 [place] % (Auto) 12.1 % (0.0-10.0) H 08/14/18 07:16 Eos % (Auto) 1.0 % (0.0-4.0) 08/14/18 07:16 Baso % (Auto) 0.6 % (0.0-2.0) 08/14/18 07:16 Neut # (Auto) 6.0 K/uL (1.8-7.0) 08/14/18 07:16 Lymph # (Auto) 1.5 K/uL (1.0-4.3) 08/14/18 07:16 [place] # (Auto) 1.1 K/uL (0.0-0.8) H 08/14/18 07:16 Eos # (Auto) 0.1 K/uL (0.0-0.7) 08/14/18 07:16 Baso # (Auto) 0.1 K/uL (0.0-0.2) 08/14/18 07:16 Neutrophils % (Manual) 80 % (50-75) H 08/13/18 10:07 Lymphocytes % (Manual) 10 % (20-40) L 08/13/18 10:07 Monocytes % (Manual) 10 % (0-10) 08/13/18 10:07 Platelet Estimate Normal (NORMAL) 08/13/18 10:07 RBC Morphology Normal 08/13/18 10:07 PT 12.5 SECONDS (9.7-12.2) H 08/13/18 10:07 INR 1.1 08/13/18 10:07 Sodium 130 mmol/L (132-148) L 08/13/18 10:07 Potassium 3.6 mmol/L (3.6-5.2) 08/13/18 10:07 Chloride 96 mmol/L (98-107) L 08/13/18 10:07 Carbon Dioxide 24 mmol/L (22-30) 08/13/18 10:07 Anion Gap 13 (10-20) 08/13/18 10:07 BUN 17 mg/dL (9-20) 08/13/18 10:07 Creatinine 1.1 mg/dL (0.8-1.5) 08/13/18 10:07 Est GFR ( Amer) > 60 08/13/18 10:07 Est GFR (Non-Af Amer) > 60 08/13/18 10:07 POC Glucose (mg/dL) 245 mg/dL (65-110) H 08/14/18 06:56 Random Glucose 232 mg/dL (75-110) H 08/13/18 10:07 Calcium 9.3 mg/dl (8.6-10.4) 08/13/18 10:07 Phosphorus 3.4 mg/dL (2.5-4.5) 08/13/18 10:07 Magnesium 1.6 mg/dL (1.6-2.3) 08/13/18 10:07 Total Bilirubin 0.9 mg/dL (0.2-1.3) 08/13/18 10:07 AST 29 U/L (17-59) 08/13/18 10:07 ALT 22 U/L (21-72) 08/13/18 10:07 Alkaline Phosphatase 88 U/L (38-126) 08/13/18 10:07 Troponin I < 0.0120 ng/mL (0.00-0.120) 08/12/18 18:07 Total Protein 7.0 g/dL (6.3-8.3) 08/13/18 10:07 Albumin 4.3 g/dL (3.5-5.0) 08/13/18 10:07 Globulin 2.7 gm/dL (2.2-3.9) 08/13/18 10:07 Albumin/Globulin Ratio 1.6 (1.0-2.1) 08/13/18 10:07 Lipase 164 U/L (23-300) 08/12/18 18:07 Procalcitonin 0.08 NG/ML (0.19-0.49) L 08/13/18 10:07 Urine Color Yellow (YELLOW) 08/12/18 18:07 Urine Clarity Hazy (Clear) 08/12/18 18:07 Urine pH 5.0 (5.0-8.0) 08/12/18 18:07 Ur Specific [place] 1.021 (1.003-1.030) 08/12/18 18:07 Urine Protein Negative mg/dL (NEGATIVE) 08/12/18 18:07 Urine Glucose (UA) 3+ mg/dL (Normal) H 08/12/18 18:07 Urine Ketones Trace mg/dL (NEGATIVE) 08/12/18 18:07 Urine Blood 1+ (NEGATIVE) H 08/12/18 18:07 Urine Nitrate Negative (NEGATIVE) 08/12/18 18:07 Urine Bilirubin Negative (NEGATIVE) 08/12/18 18:07 Urine Urobilinogen Normal mg/dL (0.2-1.0) 08/12/18 18:07 Ur Leukocyte Esterase Neg Monisha/uL (Negative) 08/12/18 18:07 Urine WBC (Auto) < 1 /hpf (0-5) 08/12/18 18:07 Urine RBC (Auto) 1 /hpf (0-3) 08/12/18 18:07 Ur Squamous Epith Cells 1 /hpf (0-5) 08/12/18 18:07 Urine Bacteria Rare (<OCC) 08/12/18 18:07 Discharge Exam - Head Exam Head Exam: ATRAUMATIC, NORMOCEPHALIC Discharge Plan - Follow Up Plan Condition: STABLE Disposition: HOME/ ROUTINE
[2018-08-14] MEDS ORDERED: Potassium Chloride 20 mEq ER Tab PO SCH (10:00)
[2018-08-14 10:09] VITALS: BP 130/76; PULSE 100
[2018-08-14] MEDS: (Novolog) Insulin Aspart, Recombinant 100 u/ml 10 ml vial SC SCH ×2 (10:09→13:00)
[2018-08-14] MEDS: Saccharomyces Boulardi 250 mg Cap PO SCH (10:12)
--- NOTE | 2018-08-14 13:36 | US ---
Date of service: 08/14/2018 PROCEDURE: Ultrasound of the Kidneys HISTORY: left hydronephrosis, s/p stent placement COMPARISON: None available. TECHNIQUE: Sonogram of the kidneys. FINDINGS: RIGHT KIDNEY: Measures: 13.1 x 5.9 x 6.0 cm. Normal in size, contour and echogenicity. In the midpole , a right intrapelvic and/or parapelvic round 3 x 3 x 2.7 cm mass which is slightly hyper echogenic relative to the renal cortex and less echogenic than the right parapelvic fat. This is compatible with the CT referenced 3 cm hyperdense right parapelvic mass. This does not have an appearance at this time compatible with a simple cyst. A complicated cyst and/or solid mass needs to be considered. No vascularity within it is seen. Bordering this mass are nonobstructing calculi 1 at the midpole is approximately 0.7 x 0.6 x 0.8 cm. Another calculus or calcification at the mid to lower pole-non obstructing measures 4 x 4 x 7 mm. No hydronephrosis appreciated. LEFT KIDNEY: Measures: 11.7 x 5.9 x 5.6 cm. Normal in size, contour and echogenicity. No hydronephrosis seen. No definitive renal calculi seen. Some hyperdensities without significant shadowing may represent the specular echoes relating to technical factors. Evaluation of the immediate left parapelvic soft tissues is limited. Currently no significant appearing hydronephrosis noted. The prior CT depicted left hydronephrosis not appreciated on this exam Evaluation of the proximal left ureter is limited on this exam. Some fullness here cannot be excluded OTHER FINDINGS: Images of the bladder show it to be mildly distended. Based on these images no suspect bladder wall thickening or intraluminal masses seen. IMPRESSION: The prior CT depicted left-sided hydronephrosis is not appreciated on this ultrasound exam. Definitive outline of the left ureteral stent-also not clearly appreciated. Correlate clinically The right intrapelvic/parapelvic renal mass appears more echogenic than typically seen with a simple cysts or cyst with debris. Although an atypical complex cyst is still not excluded-a solid mass is the diagnosis of exclusion. Consider CT urogram triple phase and/or MRI of the kidneys without and with gadolinium for further evaluation.
--- NOTE | 2018-08-14 19:48 | CARD ---
APPROVED REPORT Date of service: 08/13/2018 EKG Measurement Heart [id number] <Conclusion> Sinus tachycardia Inferior infarct, age undetermined Abnormal ECG
== END 2018-08-14 14:40 | disposition home or self-care (01) | DRG 694 ==
LOC: C.ER 16:07 → C.9E 19:43 → C.5S 08-13 00:07
PROVIDERS: ADMIT Hospitalist; ATTEND Hospitalist
DX: N13.2 Hydronephrosis with renal and ureteral calculous obstruction (principal); E78.5 Hyperlipidemia, unspecified; E11.65 Type 2 diabetes mellitus with hyperglycemia; I10 Essential (primary) hypertension; N40.0 Benign prostatic hyperplasia without lower urinary tract symptoms; N13.6 Pyonephrosis